=== PATIENT | female | born 1985 | race Caucasian/White ===

== ENCOUNTER → 2016-12-26 | Outpatient (CLI) | payer MEDICAID ==
[~2016-12-26] MED LIST: ATARAX DPS50 MG PO; BUSPAR DPS10 MG PO; BUSPAR DPS15 MG PO; COLACE-DPS100 MG PO; DEPO-PROVE150 MG/11 IM; DIAMOX DPS250 MG PO; INDERAL-DPS10 MG PO; LASIX DPS20 MG PO; LATUDA40 MG PO; LYRICA150 MG PO; MAG-OX400 MG PO; NEURONTIN DPS100 MG PO; PERCOCET 7.5-31 EACH PO; PRESTIQ PO; PRISTIQ ER100 MG PO; SINEQUAN DPS PO; SONATA10 MG PO; TOPAMAX25 M1 PO; TYLENOL DPS325 MG PO; VALIUM5 MG PO; VITAMIN B-121000 MCG PO; VITAMIN B12 PO; ZANAFLEX4 MG PO
== END | disposition home or self-care (01) ==
LOC: RAD.S 12-14 11:16 → PTH.S 07:14 → RAD.S 08:00
DX: R51 Headache (principal); Q06.8 Other specified congenital malformations of spinal cord; M79.609 Pain in unspecified limb; M54.5 Low back pain; M47.813 Spondylosis without myelopathy or radiculopathy, cervicothoracic region; M48.02 Spinal stenosis, cervical region; Z98.890 Other specified postprocedural states

== ENCOUNTER 2017-01-07 18:05 | Emergency (ER) | payer MEDICAID ==
--- NOTE | 2017-01-10 07:42 | ER ---
ADMIT: 01/07/2017 RM/LOC: ER [facility] MR#: [id number] [address] [address] [place] [address] Emergency Room Report SEX: F AGE: 31 : 1985 DATE: 01/07/2017 TIME: 1805. Please refer to my T-sheet for complete H and P. Briefly, the patient is a 31-year-old who comes in with nausea, vomiting, and diarrhea for months, probably 4 months. She says that she has not vomited at least this month, but she has been having diarrhea. She was told by her primary if she feels like she is getting dehydrated to come in. She rates general discomfort at 6/10. She has had a lot of workups and they are planning on doing an endoscopy, she says. She is not currently taking anything specifically for this and is here for evaluation. She has not traveled out of the country. PHYSICAL EXAMINATION: VITAL SIGNS: Her blood pressure 147/93, pulse 78, respirations 18, temp 98.8, and sat 98%. GENERAL: No acute distress. HEENT: May be mild dry mucous membranes. LUNGS: Clear. HEART: Regular. ABDOMEN: Soft. SKIN: No rash. EMERGENCY DEPARTMENT COURSE: She was given a liter of normal saline bolus. CBC was normal. Chemistries normal except CO2 of 19. Urine was negative. UA was normal except 39 red cells, 2+ blood. She felt much better. I had a long discussion, ready for discharge. ASSESSMENT: 1. Nausea, vomiting, and diarrhea that has been going on chronically for 4 months. 2. Mild dehydration. PLAN: Continue to follow up outpatient with Dr. Gabriel for further workup. Zantac 150 a day. Return if worse. Fluids. Grupo Retana MD/ jeniffer JOB #: [id number] CC: Jose Maher MD, Attending Physician Michell Gabriel MD, Family Physician
== END 2017-01-07 20:06 | disposition home or self-care (01) ==
LOC: ER 18:05
DX: E86.0 Dehydration (principal); R19.7 Diarrhea, unspecified; I10 Essential (primary) hypertension; E11.9 Type 2 diabetes mellitus without complications; F31.9 Bipolar disorder, unspecified; Z98.890 Other specified postprocedural states; Z88.8 Allergy status to other drugs, medicaments and biological substances; Z79.4 Long term (current) use of insulin; Z79.899 Other long term (current) drug therapy

== ENCOUNTER 2017-01-08 12:53 | Emergency (ER) | payer MEDICAID ==
--- NOTE | 2017-01-09 00:28 | ER ---
ADMIT: 01/08/2017 RM/LOC: ER [facility] MR#: [id number] [address] [address] [place] [address] Emergency Room Report SEX: F AGE: 31 : 1985 DATE: 01/08/2017 The patient is a 31-year-old female with past medical history of bipolar, hypertension, diabetes, and depression, came to the ER with chief complaint of diarrhea for 3 months and also intermittent bright red blood per rectum. The patient states rectal bleeding is painless. The patient states she had one rectal bleeding today before coming to the ER and it was mixed with blood and it was painless. The patient states she had one or two episodes of loose stool which is watery for the last 3 months and she is waiting for the scope. In the ER, the patient has stable vitals, in no obvious pain or distress. Also noticeable, the patient was in the ER for diarrhea yesterday. HEAD AND NECK: Noncontributory. Conjunctivae are not pale. CHEST: Clear bilaterally on auscultation. HEART: Normal heart sounds. ABDOMEN: Completely soft and nontender. There is no guarding or rebound. RECTAL: With the anoscope, there is no internal or external hemorrhoids. There are no fissures. Occult blood test of the rectal exam was negative for blood. Stool was sent for C. diff to the lab. The patient, at the moment, has no active bleeding. Normal vitals. CBC was normal yesterday checked. The patient had no abdominal pain. Has close followup with the primary doctor and is waiting for the scoping, colonoscopy/EGD. The patient is stable to be discharged to home with close followup with the primary doctor. The patient was discharged to home with return precautions. Charan Pires MD/ jeniffer JOB #: [id number] CC: Jose Maher MD, Attending Physician UNKNOWN, Family Physician
== END 2017-01-08 14:54 | disposition home or self-care (01) ==
LOC: ER 12:53
DX: K92.1 Melena (principal); I10 Essential (primary) hypertension; E11.9 Type 2 diabetes mellitus without complications; F32.9 Major depressive disorder, single episode, unspecified; Z79.899 Other long term (current) drug therapy

== ENCOUNTER 2017-01-11 15:26 | Emergency (ER) | payer OTHER, MEDICAID ==
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
== END 2017-01-11 18:07 | disposition home or self-care (01) ==
LOC: ER 15:26
DX: S13.4XXA Sprain of ligaments of cervical spine, initial encounter (principal); S40.012A Contusion of left shoulder, initial encounter; E11.9 Type 2 diabetes mellitus without complications; I10 Essential (primary) hypertension; Z79.899 Other long term (current) drug therapy; V43.52XA Car driver injured in collision with other type car in traffic accident, initial encounter

== ENCOUNTER 2017-01-23 06:02 | Day surgery (SDC) | payer MEDICAID ==
[~2017-01-23] VITALS: Ht 147.3 cm; Wt 120.3 kg
--- NOTE | 2017-01-24 10:50 | NUR ---
Received SAD person referral. Attempted to contact pt. No answer, voice mail message left.
--- NOTE | 2017-01-25 08:33 | OR ---
ADMIT: 01/23/2017 RM/LOC: [facility] MR#: [id number] [address] [address] [place] [address] Operative/Delivery Room Report SEX: F AGE: 31 : 1985 SURGERY DATE: 01/23/2017 SURGEON: José Miguel Andersen MD PREOPERATIVE DIAGNOSES: 1. Nausea. 2. Hematemesis. 3. Rectal bleeding. POSTOPERATIVE DIAGNOSES: 1. Gastritis. 2. Normal-appearing colon and terminal ilium. PROCEDURE: 1. Esophagogastroduodenoscopy with biopsy. 2. Complete colonoscopy with terminal ileoscopy and random biopsies. ANESTHESIA: IV general. DESCRIPTION OF PROCEDURE: The patient was taken to the endoscopy suite and placed left side down on her hospital cart. A bite block was placed and IV sedation was established. The upper endoscope was advanced through the oropharynx into the esophagus without difficulty. The scope was pushed under visualization of the stomach. Air was used to insufflate the stomach. The pylorus was intubated. The first, second, and third portions of the duodenum were examined and appeared normal. Random duodenal bulb biopsies were obtained to evaluate for celiac disease. The scope was withdrawn to the stomach. In the antrum, and gastric body, there was moderate hyperemia without ulceration. Biopsies were obtained. On retroflexion of the scope, the gastric fundus and cardia appeared normal. The scope was withdrawn to the gastroesophageal junction, where there was mild inflammation. Biopsies were obtained. The remainder of the esophageal mucosa appeared normal upon ADMIT: 01/23/2017 RM/LOC: [facility] MR#: [id number] [address] [address] [place] [id number] Operative/Delivery Room Report SEX: F AGE: 31 : 1985 withdrawal of the scope. Next, a flexible colonoscope was advanced under direct visualization through the entire colon to the level of the cecum. The cecum was identified by its anatomic landmarks in the ileocecal valve. The ileocecal valve was intubated and the terminal ileum was deeply intubated and inspected. No ulcerations, inflammatory change, or other abnormality was found. Random ileal biopsies were obtained. The scope was withdrawn. The prep was excellent. The cecum, ascending colon, transverse colon, and descending colon all appeared grossly normal. Random biopsies were obtained throughout all levels to evaluate for microscopic evidence of colitis. The scope was withdrawn to the rectum and retroflexed, and this was normal on inspection. Air was suctioned. The patient tolerated the procedure well and transferred to the recovery area in stable condition. José Miguel Andersen MD/ jeniffer JOB #: [id number] CC: José Miguel Andersen, Attending Physician FAMILY PHYSICIAN, Family Physician
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
== END 2017-01-23 10:00 | disposition home or self-care (01) ==
LOC: SSS 06:02
PROC: 0DBE8ZX Excision of Large Intestine, Via Natural or Artificial Opening Endoscopic, Diagnostic (ICD-10-PCS; principal; 2017-01-23)
PROC: 0DB98ZX Excision of Duodenum, Via Natural or Artificial Opening Endoscopic, Diagnostic (ICD-10-PCS; principal; 2017-01-23)
PROC: 0DB48ZX Excision of Esophagogastric Junction, Via Natural or Artificial Opening Endoscopic, Diagnostic (ICD-10-PCS; principal; 2017-01-23)
PROC: 0DB68ZX Excision of Stomach, Via Natural or Artificial Opening Endoscopic, Diagnostic (ICD-10-PCS; principal; 2017-01-23)
PROC: 0DBB8ZX Excision of Ileum, Via Natural or Artificial Opening Endoscopic, Diagnostic (ICD-10-PCS; principal; 2017-01-23)
DX: K29.50 Unspecified chronic gastritis without bleeding (principal); K21.0 Gastro-esophageal reflux disease with esophagitis; K52.9 Noninfective gastroenteritis and colitis, unspecified; I10 Essential (primary) hypertension; E66.01 Morbid (severe) obesity due to excess calories; E11.9 Type 2 diabetes mellitus without complications; G89.29 Other chronic pain; M54.9 Dorsalgia, unspecified; Z98.890 Other specified postprocedural states; Z88.6 Allergy status to analgesic agent; Z79.899 Other long term (current) drug therapy

== ENCOUNTER → 2017-02-02 | Outpatient (CLI) | payer MEDICAID | END | disposition home or self-care (01) | LOC: PTH.S 07:30 → RAD.S 08:00 | DX: R10.9 Unspecified abdominal pain (principal); R16.0 Hepatomegaly, not elsewhere classified; K76.0 Fatty (change of) liver, not elsewhere classified; E11.9 Type 2 diabetes mellitus without complications ==

== ENCOUNTER → 2017-03-14 | Outpatient (CLI) | payer MEDICAID | END | disposition home or self-care (01) | LOC: RAD.S 07:58 | DX: R10.9 Unspecified abdominal pain (principal); R11.10 Vomiting, unspecified ==

== ENCOUNTER → 2017-03-16 | Outpatient (CLI) | payer MEDICAID | END | disposition home or self-care (01) | LOC: RAD.S 14:16 | DX: R10.9 Unspecified abdominal pain (principal); R16.0 Hepatomegaly, not elsewhere classified; K31.89 Other diseases of stomach and duodenum; K31.84 Gastroparesis ==

== ENCOUNTER → 2017-06-27 | Outpatient (CLI) | payer MEDICAID | END | disposition home or self-care (01) | DX: N91.2 Amenorrhea, unspecified (principal); G60.0 Hereditary motor and sensory neuropathy; N83.02 Follicular cyst of left ovary ==